=== PATIENT | male | born 1995 | race American Indian/Alaskan Native ===

== ENCOUNTER 2017-08-12 15:55 | Emergency (ER) | payer MEDICAID, OTHER ==
[2017-08-12 15:55] VITALS: BMI 22.1
[2017-08-12 16:20] VITALS: RESP 20; TEMP 98.6
--- NOTE | 2017-08-12 17:34 | C.PDOC ---
History Of Present Illness 22 yr old male presents to the ER with complaints of intermittent rectal bleeding for 1 day. Patient reports history of hemorrhoids in the past and states current symptoms are similar to previous episode. Denies fever, chills, nausea, vomiting, abdominal pain, diarrhea, constipation, bowel or bladder incontinence. Time Seen by Provider: 08/12/17 16:41 Chief Complaint (Nursing): GI Problem History Per: Patient History/Exam Limitations: no limitations Onset/Duration Of Symptoms: Days (1) Current Symptoms Are (Timing): Still Present Past Medical History Reviewed: Historical Data, Nursing Documentation, Vital Signs Vital Signs: Last Vital Signs Temp 98.6 F 08/12/17 17:36 Pulse 90 08/12/17 17:36 Resp 20 08/12/17 17:36 BP 143/78 08/12/17 17:36 Pulse Ox 96 08/12/17 20:48 Family History: States: No Known Family Hx - Social History Hx Alcohol Use: Yes Hx Substance Use: No - Immunization History Hx Tetanus Toxoid Vaccination: No Hx Influenza Vaccination: No Hx Pneumococcal Vaccination: No Review Of Systems Except As Marked, All Systems Reviewed And Found Negative. Constitutional: Negative for: Fever, Chills Gastrointestinal: Positive for: Other ((+) Rectal bleeding). Negative for: Nausea, Vomiting, Abdominal Pain, Diarrhea, Constipation Genitourinary: Negative for: Incontinence Physical Exam - Physical Exam Appears: Non-toxic, No Acute Distress Skin: Warm, Dry, No Rash Head: Atraumatic, Normacephalic Eye(s): bilateral: Normal Inspection Oral Mucosa: Moist Cardiovascular: Rhythm Regular Respiratory: Normal Breath Sounds, No Rales, No Rhonchi, No Stridor, No Wheezing Gastrointestinal/Abdominal: Normal Exam, Soft, No Tenderness, No Guarding, No Rebound Rectal: Hemorrhoids (small external), No Mass, No Tenderness Back: No CVA Tenderness Extremity: Normal ROM, No Swelling Neurological/Psych: Oriented x3, Normal Speech Gait: Steady ED Course And Treatment O2 Sat by Pulse Oximetry: 96 (RA) Pulse Ox Interpretation: Normal Disposition - Disposition Referrals: Payton Wu MD [Staff Provider] - Disposition: HOME/ ROUTINE Disposition Time: 17:30 Condition: GOOD Additional Instructions: Do sitz baths (soaking in warm bath or apply warm compresses to the area 3 times a day). Follow up with the medical doctor/clinic within 3-5 days, Return if worsened. Prescriptions: Docusate Sodium [Colace] 100 mg PO DAILY #30 capsule Hydrocortisone 2.5% (Rectal) [Anusol-Hc] 1 appl RC BID #1 tube Instructions: Hemorrhoids (ED) Forms: [facility] ([place]) - Clinical Impression Clinical Impression: Hemorrhoids - PA / [employer] / Resident Statement MD/DO has reviewed & agrees with the documentation as recorded. - Scribe Statement The provider has reviewed the documentation as recorded by the Scribe Mely Hadley All medical record entries made by the Scribe were at my direction and personally dictated by me. I have reviewed the chart and agree that the record accurately reflects my personal performance of the history, physical exam, medical decision making, and the department course for this patient. I have also personally directed, reviewed, and agree with the discharge instructions and disposition.
[2017-08-12 17:37] VITALS: BP 143/78; PULSE 90
[2017-08-12 20:48] VITALS: O2SAT 96
== END 2017-08-12 17:44 | disposition home or self-care (01) ==
LOC: C.ER 15:55
DX: K64.4 Residual hemorrhoidal skin tags (principal)

== ENCOUNTER 2018-02-04 18:39 | Emergency (ER) | payer BC ==
[2018-02-04 18:39] VITALS: BMI 22.1
[2018-02-04 18:49] VITALS: RESP 16; TEMP 98.2
--- NOTE | 2018-02-04 18:59 | C.PDOC ---
History Of Present Illness 22 yo male come in request cerumen removal " for request and clearance ". Otherwise, pt denies ant active complaints-fever, chills, headache, dizziness , vertigo, ear discharges, neck pain, drooling or any other active complaints. Ambulate to Ed for evaluation, not in any apparent distress. Time Seen by Provider: 02/04/18 18:40 Chief Complaint (Nursing): ENT Problem History Per: Patient Past Medical History Reviewed: Historical Data, Nursing Documentation, Vital Signs Vital Signs: Last Vital Signs Temp 98.2 F 02/04/18 18:46 Pulse 76 02/04/18 18:46 Resp 16 02/04/18 18:46 BP 138/82 02/04/18 18:46 Pulse Ox 100 02/04/18 18:46 - Medical History PMH: No Chronic Diseases Surgical History: No Surg Hx Family History: States: No Known Family Hx - Social History Hx Alcohol Use: Yes Hx Substance Use: No - Immunization History Hx Tetanus Toxoid Vaccination: No Hx Influenza Vaccination: No Hx Pneumococcal Vaccination: No Review Of Systems Except As Marked, All Systems Reviewed And Found Negative. Constitutional: Negative for: Fever, Chills Eyes: Negative for: Vision Change ENT: Negative for: Ear Pain, Ear Discharge, Nose Discharge, Nose Congestion, Throat Pain, Throat Swelling Cardiovascular: Negative for: Chest Pain Respiratory: Negative for: Cough, Shortness of Breath, Wheezing Gastrointestinal: Negative for: Nausea, Vomiting Skin: Negative for: Rash Neurological: Negative for: Weakness, Numbness, Altered Mental Status, Headache , Dizziness Physical Exam - Physical Exam Appears: Well, Non-toxic, No Acute Distress Skin: Normal Color, Warm, No Rash Head: Normacephalic Eye(s): bilateral: PERRL Ear(s): Bilateral: TM Obscured By Wax (partialy, no TM erythema, no discharges, no ear canal edema or erythema.) Nose: No Flaring, No Discharge Oral Mucosa: Moist Tongue: Normal Appearing Lips: Normal Appearing Throat: No Erythema, No Drooling Neck: Trachea Midline, Supple Lymphatic: No Adenopathy (cervical) Extremity: Normal ROM, No Pedal Edema, No Swelling Neurological/Psych: Oriented x3, Normal Speech ED Course And Treatment O2 Sat by Pulse Oximetry: 100 Pulse Ox Interpretation: Normal Progress Note: On re-evaluation, pt is afebrile, hemodynmaicaly stable. Non- toxic. Tolerate Po well in ED. PuslEOx 100% RA. Neck: Supple, (-) meningeal sign. ENT: exam c/w B/l cerumen impaction, not complete obstruction. No ear canal edema or eyrthema, TMs appears normal B/L. No mastoid tenderness/edema/ erythema. Neurologicaly intact. Pt advised. ref. to f/u with ENT in 2-3 days for re-eavl. return if any worsening or new changes. Disposition Counseled Patient/Family Regarding: Diagnosis, Need For Followup, Rx Given - Disposition Referrals: Luis Machuca MD [Staff Provider] - Disposition: HOME/ ROUTINE Disposition Time: 18:56 Condition: STABLE Additional Instructions: Use ear drop as prescribed Follow up with ENT in 2-3 days for re-evaluation and cerumen removal as need return to ED if any worsening or new changes. Prescriptions: Carbamide Peroxide [Debrox] 3 drop AU BID #1 bottle Instructions: Ear Wax Impaction - Clinical Impression Clinical Impression: Cerumen impaction
[2018-02-04 19:46] VITALS: BP 117/76; PULSE 72; O2SAT 98
== END 2018-02-04 19:46 | disposition home or self-care (01) ==
LOC: C.ER 18:39
DX: H61.23 Impacted cerumen, bilateral (principal)